=== PATIENT | female | born 1995 | race African-American/Black ===

== ENCOUNTER 2019-09-22 00:31 | Emergency (ER) | payer OTHER ==
[2019-09-22 00:37] VITALS: BP 132/79
[2019-09-22] MEDS ORDERED: ONDANSETRON 4 MG TAB.RAPDIS PO ONE (00:46)
[2019-09-22] MEDS ORDERED: ONDANSETRON 4 MG TAB.RAPDIS ONE (00:48)
--- NOTE | 2019-09-22 00:48 | ER Document Report ---
ED Medical Screen (RME) - General Chief Complaint: Head Injury Stated Complaint: FALL/HEAD INJURY,DIZZINESS,CONSTIPATION Time Seen by Provider: 09/22/19 00:46 Notes: HPI: 23-year-old female presenting to the emergency department complaining of continued dizziness and nausea after striking her head on the ground yesterday. Patient was doing a back flip and struck the head on the ground no loss of consciousness denies neck pain. States she did not feel horribly after the initial injury but did sleep a lot, woke up very dizzy and off-balance yesterday and again today. She was concerned because of the dizziness and continuing nausea. I have greeted and performed a rapid initial assessment of this patient. A comprehensive ED assessment and evaluation of the patient, analysis of test results and completion of the medical decision making process will be conducted by additional ED providers PHYSICAL EXAMINATION: No tenderness on palpation of the scalp no visible or significant hematoma. There is no tenderness over the cervical spine on palpation. Patient gait is normal. Strength equal 5/5 bilateral upper and lower extremities. Speech is normal. - Related Data Allergies/Adverse Reactions: No Known Allergies Allergy (Unverified 09/22/19 00:41) Physical Exam - Vital signs Vitals: Temp Pulse Resp BP Pulse Ox 98.1 F 73 18 132/79 H 100 09/22/19 00:37 09/22/19 00:37 09/22/19 00:37 09/22/19 00:37 09/22/19 00:37 Course - Vital Signs Vital signs: Temp Pulse Resp BP Pulse Ox 98.1 F 73 18 132/79 H 100 09/22/19 00:37 09/22/19 00:37 09/22/19 00:37 09/22/19 00:37 09/22/19 00:37
--- NOTE | 2019-09-22 01:11 | RADIOLOGY REPORT (SQ) ---
CT HEAD WITHOUT IV CONTRAST CLINICAL STATEMENT: trauma TECHNIQUE: Axial CT images from skull base to vertex without IV contrast. This exam was performed according to our departmental dose optimization program, and includes the following measures where applicable: automated exposure control, adjustment of the mAs and/or kVp according to patient size and/or exam, and an iterative reconstruction algorithm. COMPARISON: None. FINDINGS: There is no acute intracranial hemorrhage, mass, mass effect or abnormal extra-axial fluid collection. No evidence of an acute territorial infarct is identified. The ventricles are normal. Calvaria: The skull base and calvaria demonstrate no abnormality. Paranasal sinuses: Visualized portions of the orbits and paranasal sinuses are unremarkable. skull base: Unremarkable IMPRESSION: No acute intracranial abnormality.
[2019-09-22] MEDS ORDERED: PROCHLORPERAZINE MALEATE 10 MG TABLET PO ONE (01:30)
--- NOTE | 2019-09-22 01:30 | ER Document Report ---
ED General - General Chief Complaint: Head Injury Stated Complaint: FALL/HEAD INJURY,DIZZINESS,CONSTIPATION Time Seen by Provider: 09/22/19 00:46 Mode of Arrival: Ambulatory Information source: Patient TRAVEL OUTSIDE OF THE [place] IN LAST 30 DAYS: No - HPI Onset: Other - Sunday Evening at 11pm (just over 26 hours ago) Onset/Duration: Sudden - accident/head trauma was suddne, Gradual - symptoms of dizziness and nausea have been gradually worse. Quality of pain: Achy, Pressure Severity: Moderate Pain Level: 2 Associated symptoms: Headache, Nausea, Other - Dizziness Exacerbated by: Walking Relieved by: Remaining still Similar symptoms previously: No Recently seen / treated by doctor: No Notes: 23 year old female with no signficant PMH here for a mild headache, dizziness, feeling off balance, and nausea since hitting her head about 26 hours ago. The patient was trying to do a flip and she slipped and ended up landing on her head mid flip. The patient does no think she had completely LOC but she was slightly stunned and dazed after the injury. The patient says her dizziness and nausea have gradually worsened since her head injury about 26 hours ago. - Related Data Allergies/Adverse Reactions: No Known Allergies Allergy (Unverified 09/22/19 00:41) Past Medical History - General Information source: Patient - Social History Smoking Status: Never Smoker Frequency of alcohol use: None Drug Abuse: None Lives with: Family Family History: Reviewed & Not Pertinent Patient has suicidal ideation: No Patient has homicidal ideation: No Review of Systems - Review of Systems Constitutional: No symptoms reported EENT: No symptoms reported Cardiovascular: No symptoms reported Respiratory: No symptoms reported Gastrointestinal: Nausea Genitourinary: No symptoms reported Female Genitourinary: No symptoms reported Musculoskeletal: No symptoms reported Skin: No symptoms reported Hematologic/Lymphatic: No symptoms reported Neurological/Psychological: Headaches, Other - Dizziness -: Yes All other systems reviewed and negative Physical Exam - Vital signs Vitals: Temp Pulse Resp BP Pulse Ox 98.1 F 73 18 132/79 H 100 09/22/19 00:37 09/22/19 00:37 09/22/19 00:37 09/22/19 00:37 09/22/19 00:37 - Notes Notes: GENERAL: Well-appearing, well-nourished and in no acute distress. HEAD: Atraumatic, normocephalic. EYES: Pupils equal round and reactive to light, extraocular movements intact, sclera anicteric, conjunctiva are normal. ENT: Nares patent, oropharynx clear without exudates. Moist mucous membranes. NECK: Normal range of motion, supple without lymphadenopathy or JVD. LUNGS: Breath sounds clear to auscultation bilaterally and equal. No wheezes rales or rhonchi. HEART: Regular rate and rhythm without murmurs, rubs or gallops. ABDOMEN: Soft, nontender, normoactive bowel sounds. No guarding, no rebound. No masses appreciated. EXTREMITIES: Normal range of motion, no pitting or edema. No clubbing or cyanosis. NEUROLOGICAL: Cranial nerves II through XII grossly intact. Normal speech, normal gait. Normal strength and sensation throughout. PSYCH: Normal mood, normal affect. SKIN: Warm, Dry, normal turgor, no rashes or lesions noted. Course - Re-evaluation Re-evalutation: 09/22/19 01:36 The patient had a closed head injury about 26 hours ago. The patient looks well and has a normal physical and neuro exam. Patient had a head CT ordered in triage since she has had persistent symptoms. Head CT showed no acute process. Patient was nauseated in the ER so she was treated with Zofran after her MSE. She did not have much relief so I ordered her Compazine. Patient DCed a script for Compazine and she was told to use Tylenol and Motrin for headaches. Patient was told she could have had a mild concussion and concussion precautions were given to her. Patient told to follow up with her PCP. - Vital Signs Vital signs: Temp Pulse Resp BP Pulse Ox 98.1 F 73 18 132/79 H 100 09/22/19 00:37 09/22/19 00:37 09/22/19 00:37 09/22/19 00:37 09/22/19 00:37 - Diagnostic Test Radiology reviewed: Image reviewed, Reports reviewed Discharge - Discharge Clinical Impression: Nausea Closed head injury Qualifiers: Encounter type: initial encounter Qualified Code(s): S09.90XA - Unspecified injury of head, initial encounter Condition: Stable Disposition: HOME, SELF-CARE Instructions: Concussion ([facility]), Head Injury Precautions ([facility]) Additional Instructions: Use Tylenol and Motrin for headaches. Use Compazine for nausea. Follow up with your primary care doctor or one of the doctors/clinics listed in your discharge paperwork. Prescriptions: Prochlorperazine Maleate [Compazine 10 mg Tablet] 10 mg PO ASDIR PRN #10 tablet PRN Reason:
[2019-09-22] MEDS ORDERED: ONDANSETRON ODT 4 MG TAB (6 TAB/ER DISP) PO PRN (01:46)
== END 2019-09-22 01:51 | disposition home or self-care (01) ==
LOC: ER 00:31
DX: S09.90XA Unspecified injury of head, initial encounter (principal); R42 Dizziness and giddiness; K59.00 Constipation, unspecified; W18.30XA Fall on same level, unspecified, initial encounter; Y93.43 Activity, gymnastics
CPT/HCPCS: 99283; 70450; S0119; S0183

== ENCOUNTER 2019-12-01 22:46 | Emergency (ER) | payer OTHER | END 2019-12-02 00:13 | disposition left against medical advice (07) | LOC: ER 22:46 | DX: Z53.21 Procedure and treatment not carried out due to patient leaving prior to being seen by health care provider (principal) ==